=== PATIENT | female | born 1975 | race Caucasian/White ===

== ENCOUNTER 2016-04-24 15:17 | Emergency (ER) | payer OTHER ==
[~2016-04-24] VITALS: Ht 175.3 cm; Wt 88.6 kg
[2016-04-24] MEDS ORDERED: LORazepam 2 MG/ML VIAL IM ONE (17:30)
[2016-04-24 17:59] VITALS: BP 126/78
== END 2016-04-24 18:02 | disposition home or self-care (01) ==
LOC: EMS 15:19
DX: F41.0 Panic disorder [episodic paroxysmal anxiety] (principal); R00.2 Palpitations
CPT/HCPCS: 93005; 96372; 99284; J2060